=== PATIENT | male | born 1970 | race Caucasian/White ===

== ENCOUNTER 2020-12-31 00:35 | Emergency (ER) | payer SELFPAY ==
[~2020-12-31] VITALS: Ht 180.3 cm; Wt 79.4 kg
[2020-12-31] MEDS ORDERED: PANTOPRAZOLE SODIUM 40 MG VIAL IV ONE (01:45)
[2020-12-31] MEDS ORDERED: IV NORMAL SALINE 1000 ML BAG IV ONE (01:45)
[2020-12-31 01:58] LABS: HEMATOCRIT 39.4 % (36.7-47.1); MEAN CORPUSCULAR VOLUME 92.7 fL (73.0-96.2); PLATELET COUNT (AUTO) 274 K/uL (152-348)
[2020-12-31 02:02] LABS: ALANINE AMINOTRANSFERASE 178 U/L (16-63); ALKALINE PHOSPHATASE 117 U/L (50-136); ASPARTATE AMINOTRANSFERASE 79 U/L (15-37); BILIRUBIN,DIRECT < 0.1 mg/dL (0.0-0.2); BILIRUBIN,TOTAL 0.3 mg/dL (0.2-1.0); CARBON DIOXIDE 27 mmol/L (21-32); CHLORIDE 105 mmol/L (98-107); CREATININE 0.9 mg/dL (0.6-1.3); GLUCOSE 99 mg/dL (74-106); LIPASE 169 U/L (73-393); POTASSIUM 3.7 mmol/L (3.5-5.1); TOTAL PROTEIN, SERUM 6.2 g/dL (6.4-8.2); UREA NITROGEN, BLOOD 17 mg/dL (7-18)
[2020-12-31] MEDS ORDERED: PANTOPRAZOLE SODIUM 40 MG VIAL ONE (02:06)
--- NOTE | 2020-12-31 03:20 | NUR ---
PATIENT TOLERATED MEAL PROVIDED FOR PATIENT.
--- NOTE | 2020-12-31 04:00 | NUR ---
PATIENT SLEEPING ON GURNY WITH NO DISTRESS NOTED.
--- NOTE | 2020-12-31 05:00 | NUR ---
Patient awake stating "I feel good." No distress noted.
--- NOTE | 2020-12-31 06:21 | NUR ---
IV removed. Catheter intact and site benign. Pressure and 4x4 gauze applied to site. No bleeding noted.
[2020-12-31] MEDS ORDERED: OMEP40CA21 PO (06:24)
--- NOTE | 2020-12-31 06:31 | NUR ---
Patient discharged to home in stable condition. Written and verbal after care instructions given. Patient verbalizes understanding of instructions. Stressed follow up or return to ER for worsening s/s.
[2020-12-31 06:32] VITALS: BP 110/82
== END 2020-12-31 06:33 | disposition home or self-care (01) ==
LOC: ER 01:04
DX: K29.20 Alcoholic gastritis without bleeding (principal); F10.20 Alcohol dependence, uncomplicated; R51.9 Headache, unspecified; R94.31 Abnormal electrocardiogram [ECG] [EKG]; R79.89 Other specified abnormal findings of blood chemistry; Z82.49 Family history of ischemic heart disease and other diseases of the circulatory system; R03.0 Elevated blood-pressure reading, without diagnosis of hypertension
CPT/HCPCS: 36415; 70450; 71045; 80048; 80076; 83690; 84484; 85025; 93005; 96361; 96374; 99285; C9113; 70030-TC; A4663; J7030